=== PATIENT | female | born 1995 | race Two or more races ===

== ENCOUNTER 2016-11-19 16:46 | Emergency (ER) | payer MEDICAID ==
[~2016-11-19] VITALS: Ht 160 cm; Wt 68.9 kg
[~2016-11-19 16:46] MED LIST: NAPROSYN500 MG PO; ULTRACET1 TABLET PO; VALIUM5 MG PO
[2016-11-19 16:48] VITALS: BP 130/92
[2016-11-19 17:28] LABS: MCH 30.4 PG (29.0-34.0); MCHC 34.9 G/DL (30.0-36.0); MCV 87.2 FL (83-99); MEAN PLAT.VOLUME 10.9 uM^3 (9.5-12.4); PLATELET COUNT 267 K/uL (156-360); RBC DIS.WIDTH-CV 14.4 % (11.8-14.6); RBC DIS.WIDTH-SD 45.8 % (39-53); RED BLOOD COUNT 6.08 M/uL (3.80-5.20); WHITE BLOOD COUNT 9.7 K/uL (4.1-10.2)
[2016-11-19 17:42] LABS: D-DIMER ELISA 0.46 mg/L FEU (< 0.57)
[2016-11-19 17:45] LABS: CHLORIDE 106 mEq/L (99-109); POTASSIUM 4.5 mEq/L (3.7-5.4); SODIUM 140 mEq/L (136-147)
[2016-11-19 17:47] LABS: GLUCOSE 111 mg/dL (70-99)
[2016-11-19 17:48] LABS: ANION GAP 10 MEQ/L (2-14)
[2016-11-19 17:49] LABS: TROP-I INTERPRETATION NEGATIVE; TROPONIN-I 0.02 ng/mL (0.0-0.30)
[2016-11-19 17:51] LABS: GFR ESTIMATE (CALCULATED) > 59 mL/min/
[2016-11-19 17:52] LABS: UREA NITROGEN (BUN) 14 mg/dL (9-23)
[2016-11-19 17:59] LABS: QUANTITATIVE HCG < 4.0 MIU/ML
== END 2016-11-19 18:54 | disposition left against medical advice (07) ==
LOC: EME 16:46
PROVIDERS: Emergency Medicine
DX: R06.02 Shortness of breath (principal); Q24.8 Other specified congenital malformations of heart; F17.200 Nicotine dependence, unspecified, uncomplicated
CPT/HCPCS: 71020; 80048; 84484; 84702; 85027; 85379; 93005; 99281; 99285

== ENCOUNTER 2017-11-04 13:13 | Emergency (ER) | payer OTHER ==
[~2017-11-04] VITALS: Ht 152.4 cm; Wt 72.7 kg
[2017-11-04] MEDS ORDERED: ULTRAM50 MG PO (15:11)
[2017-11-04] MEDS ORDERED: MOTRIN600 MG PO (15:11)
[2017-11-04 15:49] VITALS: BP 148/86
== END 2017-11-04 15:49 | disposition home or self-care (01) ==
LOC: EME 13:13
DX: S93.402A Sprain of unspecified ligament of left ankle, initial encounter (principal); R07.9 Chest pain, unspecified; M79.662 Pain in left lower leg; Y04.8XXA Assault by other bodily force, initial encounter; Z99.81 Dependence on supplemental oxygen
CPT/HCPCS: 71046; 73590; 73610; 99281; 99284